=== PATIENT | female | born 1945 | race Caucasian/White ===

== ENCOUNTER → 2024-06-30 09:53 | Outpatient (CLI) | payer MEDICARE, SELFPAY ==
--- NOTE | 2024-06-30 | DI.US.S_ITS ---
PROCEDURE: US RENAL DOPPLER INDICATIONS: essential primary hypertension TECHNIQUE: Real time scanning was performed of both kidneys, followed by Color and pulsed Doppler interrogation of the renal vessels. COMPARISON: None. FINDINGS: Aortic peak systolic velocity: 74 cm/s. Right side: Quiroz-scale imaging: Kidney is 10.2 cm long. No hydronephrosis. No nephrolithiasis. Renal cortex is normal in echogenicity. No suspicious solid renal masses. Proximal renal artery peak systolic velocity: 85 cm/s. Mid renal artery peak systolic velocity: 148 cm/s. Distal renal artery peak systolic velocity: 119 cm/s. Renal vein: Patent, without thrombus. Peak renal/aortic ratio (RAR): 2.0 Left side: Quiroz-scale imaging: Kidney is 9.8 cm long. No hydronephrosis. No nephrolithiasis. Renal cortex is normal in echogenicity. No suspicious solid renal masses. Proximal renal artery peak systolic velocity: 66 cm/s. Mid-renal artery peak systolic velocity: 89 cm/s. Distal renal artery peak systolic velocity: 81 cm/s. Renal vein: Patent, without thrombus. Peak renal/aortic ratio (RAR): 1.2 IMPRESSION: No duplex renal ultrasound evidence of renal artery stenosis Approved by: Junior Darby M.D. on 06/30/2024 at 17:54
== END ==
PROVIDERS: Referring Provider Internal Medicine; Visit Provider Internal Medicine
DX: I10 Essential (primary) hypertension (principal)
CPT/HCPCS: 93975